=== PATIENT | male | born 1965 | race Two or more races ===

== ENCOUNTER 2016-04-16 10:36 | Emergency (ER) | payer OTHER ==
[~2016-04-16] VITALS: Ht 165.1 cm; Wt 63.5 kg
[~2016-04-16 10:36] MED LIST: NKM
[2016-04-16] MEDS ORDERED: ALPRAZolam 0.5mg tab ORAL ONE (10:45)
--- NOTE | 2016-04-16 10:48 | Emergency Room Report ---
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 Patient endorses substernal chest pain and dizziness and anxiety after "big" argument. Denies any trauma resulted. Denies history of CAD, HTN, DM, HLD, NV. Doesnt take ASA or other meds. States pain is resolving. Denies history of anxiety/depression diagnoses by psychiatrist but does "get anxious" sometimes. Allergies: Coded Allergies: No Known Allergies (Unverified , 04/16/16) Patient History Past Medical History: none Past Surgical History: none Pertinent Family History: none Social History: Denies: alcohol use, drug use, smoking Immunizations: UTD Reviewed Nursing Documentation: PMH: Agreed, PSxH: Agreed Nursing Documentation-PMH Past Medical History: No Stated History Review of Systems All Other Systems: negative except mentioned in HPI Physical Exam Vital Signs Date Time Temp Pulse Resp B/P Pulse Ox O2 Delivery O2 Flow Rate FiO2 04/16/16 10:31 97.9 80 16 124/72 97 Room Air Sp02 EP Interpretation: reviewed, normal General Appearance: normal inspection, well appearing, no apparent distress, alert Head: normocephalic, atraumatic Eyes: bilateral eye EOMI, bilateral eye PERRL ENT: normal ENT inspection, hearing grossly normal, normal voice Neck: normal inspection, full range of motion, supple, no bony tend Respiratory: normal inspection, lungs clear, normal breath sounds, no rhonchi, no respiratory distress, no retraction, no accessory muscle use, no wheezing, chest symmetrical, palpation of chest normal Cardiovascular #1: normal peripheral pulses, regular rate, rhythm, no edema Gastrointestinal: normal inspection, normal bowel sounds, non tender, soft, no guarding, no hernia Genitourinary: no CVA tenderness Musculoskeletal: normal inspection, back normal, normal range of motion, Araceli' s Sign negative Neurologic: normal inspection, alert, responsive, speech normal Psychiatric: normal inspection, judgement/insight normal, mood/affect normal, no suicidal/homicidal ideation, anxious Skin: normal inspection, normal color, no rash Medical Decision Making Diagnostic Impression: Primary Impression: Anxiety Additional Impression: Chest pain Qualified Codes: R07.9 - Chest pain, unspecified ER Course 50 YO M without known CAD risk factors with chest pain, now resolving, with anxiety after argument at work with boss. VSS. Afebrile. Low suspicion for AMI given normal VS, absence of CAD risk factors, known exacerbating event History of anxiety ECG is NSR, no ischemia. Anxiety improved s/p PO xanax DC home after period of observation EKG Diagnostic Results Rate: normal Rhythm: NSR ST Segments: no acute changes ASA given to the pt in ED: No Last Vital Signs Date Time Temp Pulse Resp B/P Pulse Ox O2 Delivery O2 Flow Rate FiO2 04/16/16 10:31 97.9 80 16 124/72 97 Room Air Status: improved Disposition: HOME, SELF-CARE SIDDHARTH LAWRENCE M.D. Apr 16, 2016 10:48
[2016-04-16 12:13] VITALS: BP 124/72
== END 2016-04-16 12:18 | disposition home or self-care (01) ==
LOC: EDBD 10:36 → EMR 11:52
DX: R07.9 Chest pain, unspecified (principal); F41.9 Anxiety disorder, unspecified
CPT/HCPCS: 99282